=== PATIENT | male | born 1980 | race Caucasian/White ===

== ENCOUNTER 2022-02-13 18:20 | Emergency (ER) | payer MEDICAID ==
[~2022-02-13] VITALS: Ht 180.3 cm; Wt 118.0 kg
[2022-02-13 18:23] VITALS: BP 127/97
== END 2022-02-13 18:55 | disposition left against medical advice (07) ==
LOC: ER 18:20
DX: Z53.21 Procedure and treatment not carried out due to patient leaving prior to being seen by health care provider (principal)
CPT/HCPCS: 93005